=== PATIENT | female | born 1980 | race Hispanic/Latino ===

== ENCOUNTER 2017-09-24 10:56 | Emergency (ER) | payer BC ==
[2017-09-24] MEDS ORDERED: NA CHLORIDE 0.9% 1,000 ML ONE (12:13)
[2017-09-24] MEDS ORDERED: ONDANSETRON 4 MG/2 ML VIAL ONE ×2 (12:13→15:03)
[2017-09-24 12:22] LABS: Absolute Lymphocytes (CBC) 1.8 K/uL (0.7-4.9); Absolute Monocytes 0.4 K/uL (0.1-1.3); Absolute Neutrophil 2.3 K/uL (1.8-8.0); Basophils % 0.3 % (0-1.3); Eosinophils % 0.7 % (0-4.4); Hematocrit 42.8 % (36.0-45.0); Lymphocytes % 39.2 % (15.3-44.8); MCH 32.1 pg (27.0-35.0); MCV 93.7 fL (80-100); MPV 9.3 fL (7.6-11.3); Monocytes % 9.1 % (3.3-12.3); RBC Red Blood Cell Count 4.57 M/uL (3.86-4.86)
[2017-09-24 12:36] LABS: Bicarbonate 20 mEq/L (21-31); Glucose Level 88 mg/dL (65-120); Lipase 56 U/L (22-51); Potassium 3.2 mEq/L (3.6-5.0); Sodium Level 141 mEq/L (135-145)
[2017-09-24 12:42] LABS: ALT/SGPT 42 IU/L (10-60); AST/SGOT 28 IU/L (10-42); Albumin 4.4 g/dL (3.2-5.5); Alkaline Phosphatase 60 IU/L (42-121); BUN Blood Urea Nitrogen 8 mg/dL (6-20); Bilirubin Direct 0.2 mg/dL (0-0.2); Bilirubin Total 1.4 mg/dL (0.3-1.2); Protein, Total 7.6 g/dL (6.0-8.3)
[2017-09-24 13:56] LABS: Urine Blood NEGATIVE (NEG); Urine Glucose NEGATIVE (NEG); Urine Protein 2+ (NEG); Urine Specific Gravity >1.030 (1.005-1.030)
--- NOTE | 2017-09-24 14:52 | RAD REPORT ---
EXAM DESCRIPTION: CT - Abdomen Pelvis W Contrast - 09/24/2017 2:31 pm CLINICAL HISTORY: Abdominal pain, nausea and vomiting, history of recent gastric sleeve procedure COMPARISON: None. TECHNIQUE: Biphasic, helical CT imaging of the abdomen and pelvis was performed following 100 ml non -ionic IV contrast. No oral contrast administered. All CT scans are performed using dose optimization technique as appropriate and may include automated exposure control or mA/KV adjustment according to patient size. FINDINGS: No suspicious findings in the lung bases. No pericardial effusion. Bilateral breast implan ts are in place. The liver, spleen, and pancreas show no suspicious findings. Gallbladder and biliary tree are also wi thout suspicious finding. Symmetric renal function is seen with no hydronephrosis or suspicious renal mass. No pyelonephritis o r acute renal parenchymal process. Contracted urinary bladder shows no suspicious findings. No uterin e or right ovarian suspicious finding. Left ovary contains a 13 millimeter partially collapsed cyst. No fallopian tube dilatation. Gastric sleeve surgical changes are present. No hematoma, mass or other acute finding identifiable in this region. Large and small bowel are not dilated. No focal wall thickening or mass. The appendix i s normal. No free air or pneumatosis. Trace free fluid in the cul-de-sac is well within physiologic limits. No hernia, mass or bulky lymphadenopathy. No adrenal abnormality. No suspicious bony findings. IMPRESSION: Contrast enhanced CT abdomen and pelvis imaging shows no acute or worrisome finding. The small partially involuted left ovarian cyst is not regarded as significant.
--- NOTE | 2017-09-24 16:22 | ER ---
Nurse's Notes [facility] Name: Yani Bella Age: 37 yrs Sex: Female : 1980 Arrival Date: 09/24/2017 Time: 11:03 Bed 15 Private MD: Ronni Meléndez B Diagnosis: Nausea and vomiting Presentation: 09/24 11:07 Presenting complaint: Patient states: N/V x 4 days. Not tolerating liquids. Denies hb fever/diarrhea/abdominal pain. Recent gastric sleeve sx 07/17/17. Transition of care: patient was not received from another setting of care. Onset of symptoms was September 21, 2017. Risk Assessment: Do you want to hurt yourself or someone else? Patient reports no desire to harm self or others. Initial Sepsis Screen: Does the patient meet any 2 criteria? No. Patient's initial sepsis screen is negative. Does the patient have a suspected source of infection? No. Patient's initial sepsis screen is negative. Care prior to arrival: None. 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 - Social history:: Smoking status: Patient/guardian denies using tobacco. - Ebola Screening: : No symptoms or risks identified at this time. Screenin:18 Abuse screen: Denies threats or abuse. Denies injuries from another. Nutritional ph screening: No deficits noted. Tuberculosis screening: No symptoms or risk factors identified. Fall Risk None identified. Assessment: 11:59 General: Appears in no apparent distress. uncomfortable, well groomed, Behavior is ph calm, cooperative, appropriate for age. Pain: Denies pain. Neuro: Level of Consciousness is awake, alert, obeys commands, Oriented to person, place, time, situation. Cardiovascular: Capillary refill < 3 seconds Patient's skin is warm and dry. Respiratory: Airway is patent Respiratory effort is even, unlabored, Respiratory pattern is regular, symmetrical. GI: Abdomen is round non-distended, Bowel sounds present X 4 quads. Abd is soft and non tender X 4 quads. Reports nausea, vomiting. 12:18 Derm: Skin is intact, is healthy with good turgor, Skin is pink, warm \T\ dry. ph Musculoskeletal: Circulation, motion, and sensation intact. Range of motion: intact in all extremities. 13:05 Reassessment: Patient appears in no apparent distress at this time. Patient and/or ph family updated on plan of care and expected duration. Pain level reassessed. Patient is alert, oriented x 3, equal unlabored respirations, skin warm/dry/pink. Pt resting quietly, awaiting CT scan. 14:00 Reassessment: Patient appears in no apparent distress at this time. Patient and/or ph family updated on plan of care and expected duration. Pain level reassessed. Patient is alert, oriented x 3, equal unlabored respirations, skin warm/dry/pink. 15:00 Reassessment: Patient appears in no apparent distress at this time. Patient and/or ph family updated on plan of care and expected duration. Pain level reassessed. Patient is alert, oriented x 3, equal unlabored respirations, skin warm/dry/pink. Pt c/o nausea, ERP notified, see MAR. 17:41 Reassessment: Patient appears in no apparent distress at this time. Patient and/or ph family updated on plan of care and expected duration. Pain level reassessed. Patient is alert, oriented x 3, equal unlabored respirations, skin warm/dry/pink. Pt discharged home w/ prescriptions and diet suggestions for bariatric sx. Vital Signs: 11:08 BP 118 / 82; Pulse 81; Resp 16; Temp 98.3; Pulse Ox 100% on R/A; Weight 72.57 kg; hb Height 5 ft. 2 in. (157.48 cm); Pain 0/10; 13:02 BP 106 / 75; Pulse 66; Resp 18; Pulse Ox 100% on R/A; ph 14:00 BP 114 / 79; Pulse 63; Resp 18; Pulse Ox 99% on R/A; ph 15:00 BP 106 / 71; Pulse 73; Resp 18; Pulse Ox 98% on R/A; ph 11:08 Body Mass Index 29.26 (72.57 kg, 157.48 cm) hb ED Course: 11:03 Patient arrived in ED. sb2 11:03 Ronni Meléndez MD is Private Physician. sb2 11:08 Triage completed. hb 11:08 Arm band placed on left wrist. hb 11:34 [facility] pm1 11:34 Yuri Lewis MD is Attending Physician. pm1 11:47 Sophy Nunez RN is Primary Nurse. ph 12:18 Initial lab(s) drawn, by me, sent to lab. Inserted saline lock: 22 gauge in right ph antecubital area, using aseptic technique. Blood collected. 12:20 Patient has correct armband on for positive identification. Bed in low position. Call ph light in reach. Side rails up X 1. Pulse ox on. NIBP on. Warm blanket given. 12:43 Radiology exam delayed due to test not completed at this time. vr 14:[address] via wheelchair. mw3 14:30 CT completed. Patient tolerated procedure well. Patient moved back from CT. mw3 14:31 CT Abd/Pelvis - W/Contrast: IV contrast only In Process Unspecified. EDMS 15:26 No provider procedures requiring assistance completed. ph 17:57 IV discontinued, intact, bleeding controlled, No redness/swelling at site. Pressure ph dressing applied. Administered Medications: 12:19 Drug: NS 0.9% 1000 ml Route: IV; Rate: 1000 ml; Site: right antecubital; ph 15:28 Follow up: Response: No adverse reaction; IV Status: Completed infusion ph 12:19 Drug: Zofran 4 mg Route: IVP; Site: right antecubital; ph 13:00 Follow up: Response: No adverse reaction; Nausea is decreased ph 15:05 Drug: Zofran 4 mg Route: IVP; Site: right antecubital; ph 15:27 Follow up: Response: No adverse reaction; Nausea is decreased ph 16:45 Drug: Pepcid 20 mg Route: IVP; Site: right antecubital; ph 17:30 Follow up: Response: No adverse reaction ph 16:45 Drug: Phenergan 12.5 mg Route: IVP; Site: right antecubital; ph 17:30 Follow up: Response: No adverse reaction; Nausea is decreased ph 17:16 Drug: Potassium Effervescent Tablet 50 mEq Route: PO; ph 17:30 Follow up: Response: No adverse reaction ph Outcome: 16:21 Discharge ordered by MD. pm1 17:57 Patient left the ED. ph 17:57 Discharged to home ambulatory, with family. ph 17:57 Condition: improved 17:57 Discharge instructions given to patient, family, Instructed on discharge instructions, follow up and referral plans. medication usage, Demonstrated understanding of instructions, follow-up care, medications, Prescriptions given X 3. Signatures: Dispatcher [employer] EDStephanie Trinidad Patricia, RN RN Neri Carranza, FELICIA MANAGER IMAGE pm1 Jesika Jane RN RN Monica Dawson sb2 Candelaria Farah mw3
--- NOTE | 2017-09-24 16:23 | EDPHYS ---
Physician Documentation [facility] Name: Yani Bella Age: 37 yrs Sex: Female : 1980 Arrival Date: 09/24/2017 Time: 11:03 Bed 15 Private MD: Ronni Meléndez B ED Physician Yuri Lewis HPI: 09/24 12:55 This 37 yrs old Female presents to ER via Ambulatory with complaints of pm1 Vomiting. 12:55 The patient presents to the emergency department with vomiting. Onset: The pm1 symptoms/episode began/occurred 2 day(s) ago. Possible causes: Gastric Sleeve. The symptoms are aggravated by food , The symptoms are alleviated by nothing. Associated signs and symptoms: Pertinent negatives: abdominal pain, diarrhea, dysuria, fever, nausea. Severity of symptoms: Pain is currently a 0 / 10. Patient with gastric sleeve placed in [facility] on July 18, 2017. Patient has lost 30 pounds since placement of sleeve. Patient reports vomiting with eating and drinking for the past two days. 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 - Social history:: Smoking status: Patient/guardian denies using tobacco. - Ebola Screening: : No symptoms or risks identified at this time. ROS: 12:55 Constitutional: Negative for fever, chills, and weight loss, Eyes: Negative for injury, pm1 pain, redness, and discharge, ENT: Negative for injury, pain, and discharge, Neck: Negative for injury, pain, and swelling, Cardiovascular: Negative for chest pain, palpitations, and edema, Respiratory: Negative for shortness of breath, cough, wheezing, and pleuritic chest pain. 12:55 Back: Negative for injury and pain, : Negative for injury, bleeding, discharge, and swelling, MS/Extremity: Negative for injury and deformity, Skin: Negative for injury, rash, and discoloration, Neuro: Negative for headache, weakness, numbness, tingling, and seizure. 12:55 Abdomen/GI: Positive for vomiting, Negative for abdominal pain, nausea, diarrhea. Exam: 12:55 Constitutional: This is a well developed, well nourished patient who is awake, alert, pm1 and in no acute distress. Head/Face: Normocephalic, atraumatic. Eyes: Pupils equal round and reactive to light, extra-ocular motions intact. Lids and lashes normal. Conjunctiva and sclera are non-icteric and not injected. Cornea within normal limits. Periorbital areas with no swelling, redness, or edema. ENT: Nares patent. No nasal discharge, no septal abnormalities noted. Tympanic membranes are normal and external auditory canals are clear. Oropharynx with no redness, swelling, or masses, exudates, or evidence of obstruction, uvula midline. Mucous membranes moist. Neck: Trachea midline, no thyromegaly or masses palpated, and no cervical lymphadenopathy. Supple, full range of motion without nuchal rigidity, or vertebral point tenderness. No Meningismus. Chest/axilla: Normal chest wall appearance and motion. Nontender with no deformity. No lesions are appreciated. Cardiovascular: Regular rate and rhythm with a normal S1 and S2. No gallops, murmurs, or rubs. Normal PMI, no JVD. No pulse deficits. Respiratory: Lungs have equal breath sounds bilaterally, clear to auscultation and percussion. No rales, rhonchi or wheezes noted. No increased work of breathing, no retractions or nasal flaring. Abdomen/GI: Soft, non-tender, with normal bowel sounds. No distension or tympany. No guarding or rebound. No evidence of tenderness throughout. Back: No spinal tenderness. No costovertebral tenderness. Full range of motion. Skin: Warm, dry with normal turgor. Normal color with no rashes, no lesions, and no evidence of cellulitis. MS/ Extremity: Pulses equal, no cyanosis. Neurovascular intact. Full, normal range of motion. 12:55 Neuro: Orientation: is normal, Motor: moves all fours. Vital Signs: 11:08 BP 118 / 82; Pulse 81; Resp 16; Temp 98.3; Pulse Ox 100% on R/A; Weight 72.57 kg; hb Height 5 ft. 2 in. (157.48 cm); Pain 0/10; 13:02 BP 106 / 75; Pulse 66; Resp 18; Pulse Ox 100% on R/A; ph 14:00 BP 114 / 79; Pulse 63; Resp 18; Pulse Ox 99% on R/A; ph 15:00 BP 106 / 71; Pulse 73; Resp 18; Pulse Ox 98% on R/A; ph 11:08 Body Mass Index 29.26 (72.57 kg, 157.48 cm) hb MDM: 11:38 Patient medically screened. [facility] 12:59 Data reviewed: vital signs. Data interpreted: Pulse oximetry: on room air is 100 %. pm1 Interpretation: normal. 16:06 Counseling: I had a detailed discussion with the patient and/or guardian regarding: the pm1 historical points, exam findings, and any diagnostic results supporting the discharge/admit diagnosis, lab results, radiology results, the need for outpatient follow up, to return to the emergency department if symptoms worsen or persist or if there are any questions or concerns that arise at home. 09/24 11:53 Order name: Basic Metabolic Panel; Complete Time: 12:54 pm09/24 11:53 Order name: CBC with Diff; Complete Time: 12:54 pm09/24 11:53 Order name: Creatinine for Radiology; Complete Time: 12:54 pm09/24 11:53 Order name: Hepatic Function; Complete Time: 12:54 pm09/24 11:53 Order name: Lipase; Complete Time: 12:54 pm09/24 13:50 Order name: Urine Dipstick--Ancillary (enter results) 09/24 11:54 Order name: CT Abd/Pelvis - W/Contrast: IV contrast only; Complete Time: 14:53 pm09/24 13:50 Order name: Urine --Ancillary (enter results) 09/24 11:53 Order name: Urine Test (obtain specimen); Complete Time: 15:28 pm09/24 11:53 Order name: IV Saline Lock; Complete Time: 12:20 pm09/24 11:53 Order name: Labs collected and sent; Complete Time: 12:20 pm09/24 11:53 Order name: Urine Dipstick-Ancillary (obtain specimen); Complete Time: 15:28 pm1 Administered Medications: 12:19 Drug: NS 0.9% 1000 ml Route: IV; Rate: 1000 ml; Site: right antecubital; ph 15:28 Follow up: Response: No adverse reaction; IV Status: Completed infusion ph 12:19 Drug: Zofran 4 mg Route: IVP; Site: right antecubital; ph 13:00 Follow up: Response: No adverse reaction; Nausea is decreased ph 15:05 Drug: Zofran 4 mg Route: IVP; Site: right antecubital; ph 15:27 Follow up: Response: No adverse reaction; Nausea is decreased ph 16:45 Drug: Pepcid 20 mg Route: IVP; Site: right antecubital; ph 17:30 Follow up: Response: No adverse reaction ph 16:45 Drug: Phenergan 12.5 mg Route: IVP; Site: right antecubital; ph 17:30 Follow up: Response: No adverse reaction; Nausea is decreased ph 17:16 Drug: Potassium Effervescent Tablet 50 mEq Route: PO; ph 17:30 Follow up: Response: No adverse reaction ph Disposition: 09/25 10:51 Co-signature as Attending Physician, Yuri Lewis MD I agree with the assessment and manav plan of care. Disposition: 09/24/17 16:21 Discharged to Home. Impression: Nausea and vomiting. - Condition is Stable. - Discharge Instructions: Nausea and Vomiting. - Prescriptions for Pepcid 20 mg Oral Tablet - take 1 tablet by ORAL route every 12 hours for 10 days; 20 tablet. Zofran 4 mg Oral Tablet - take 1 tablet by ORAL route every 12 hours As needed; 20 tablet. Phenergan 25 mg Rectal Suppository - insert 1 suppository by RECTAL route every 6 hours As needed; 12 suppository. - Work release form, Medication Reconciliation Form, Thank You Letter, Antibiotic Education, Prescription Opioid Use form. - Follow up: Emergency Department; When: As needed; Reason: Worsening of condition. Follow up: Private Physician; When: 2 - 3 days; Reason: Recheck today's complaints, Continuance of care, Re-evaluation by your physician. - Problem is new. - Symptoms have improved. Signatures: Dispatcher [employer] Yuri Salmeron MD MD cha Hall, Patricia, RN RN ph Neri Carranza, HYDROMETER TESTER HYDROMETER TESTER pm1 Jesika Jane RN RN Corrections: (The following items were deleted from the chart) 09/24 17:57 16:21 09/24/2017 16:21 Discharged to Home. Impression: Nausea and vomiting. Condition ph is Stable. Forms are Medication Reconciliation Form, Thank You Letter, Antibiotic Education, Prescription Opioid Use. Follow up: Emergency Department; When: As needed; Reason: Worsening of condition. Follow up: Private Physician; When: 2 - 3 days; Reason: Recheck today's complaints, Continuance of care, Re-evaluation by your physician. Problem is new. Symptoms have improved. pm1
[2017-09-24] MEDS ORDERED: POTASSIUM 25 MEQ EFFERV TAB ONE (16:34)
[2017-09-24] MEDS ORDERED: FAMOTIDINE 20 MG/2 ML VIAL IV ONE (16:34)
[2017-09-24] MEDS ORDERED: PROMETHAZINE 25 MG/ML VIAL ONE (16:34)
[2017-09-24] MEDS ORDERED: POTASSIUM CL SA 10 MEQ TAB PO ONE (17:13)
== END 2017-09-24 17:57 | disposition home or self-care (01) ==
LOC: ER 10:56
DX: R11.2 Nausea with vomiting, unspecified (principal); Z98.82 Breast implant status; Z98.84 Bariatric surgery status
CPT/HCPCS: 36415; 74177; 80048; 80076; 81003; 81025; 83690; 85025; 96361; 96374; 96375; 99284; J2405; J2550; J7030; Q9967

== ENCOUNTER 2018-06-05 12:30 | Emergency (ER) | payer BC, SELFPAY ==
[2018-06-05] MEDS ORDERED: IBUPROFEN 200 MG TAB PO ONE (14:34)
[2018-06-05] MEDS ORDERED: HYDROCODONE/APAP 5/325 MG TAB ONE (14:34)
[2018-06-05] MEDS ORDERED: CYCLOBENZAPRINE 10 MG TAB ONE (14:34)
--- NOTE | 2018-06-05 14:36 | RAD REPORT ---
EXAM DESCRIPTION: Willi Washburn (2 Views)06/05/2018 2:24 pm CLINICAL HISTORY: Chest pain COMPARISON: None FINDINGS: The lungs appear clear of acute infiltrate. The heart is normal size IMPRESSION: No acute abnormalities displayed
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
[2018-06-05 18:28] LABS: Urine Blood 3+ (NEG); Urine Glucose NEGATIVE (NEG); Urine Protein NEGATIVE (NEG); Urine Specific Gravity 1.025 (1.005-1.030); Urine pH 5.5 (5.0-7.0)
== END 2018-06-05 15:28 | disposition home or self-care (01) ==
LOC: ER 12:30
DX: R07.9 Chest pain, unspecified (principal); V49.40XA Driver injured in collision with unspecified motor vehicles in traffic accident, initial encounter
CPT/HCPCS: 70450; 71046; 72125; 81003; 81025; 99284